=== PATIENT | female | born 1975 | race Caucasian/White ===

== ENCOUNTER 2019-01-21 09:18 | Emergency (ER) | payer MEDICAID, OTHER ==
[~2019-01-21] VITALS: Ht 170.2 cm; Wt 83.7 kg
[2019-01-21 09:20] VITALS: BP 162/77; PULSE 86; RESP 18; Ht 170.2 cm; Wt 83.7 kg
[2019-01-21] MEDS ORDERED: KETOROLAC 30 MG INJ IM STA (09:55)
[2019-01-21] MEDS ORDERED: HYDROCODONE/APAP (5/325) TAB PO ONE (10:00)
[2019-01-21] MEDS ORDERED: IBUP800T48 PO (10:27)
[2019-01-21] MEDS ORDERED: CYCL10TA7 PO (10:27)
--- NOTE | 2019-01-21 10:27 | ERD ---
ER Documentation Chief Complaint Chief Complaint back & neck pain & stiffness x2 days, denies injury HPI 43-year-old female is here complaining of 2 days of lower back and neck and bilateral shoulder pain and stiffness. No recent illness. She thinks is from lifting heavy objects at work. No fever. No flank pain. No dysuria hematuria or frequency. Has been taking anti-inflammatories at home with minimal relief. ROS All systems reviewed and are negative except as per history of present illness. Medications Home Meds No Active Prescriptions or Reported Meds Allergies Allergies: Coded Allergies: No Known Allergy (Unverified , 04/09/13) PMhx/Soc Medical and Surgical Hx: pt denies Medical Hx, pt denies Surgical Hx Hx Alcohol Use: No Hx Substance Use: No Hx Tobacco Use: No Smoking Status: Never smoker FmHx Family History: No diabetes Physical Exam Vitals Vital Signs Date Temp Pulse Resp B/P (MAP) Pulse Ox O2 O2 Flow FiO2 Time Delivery Rate 01/21/19 97.8 86 18 162/77 100 09:20 (105) Physical Exam INITIAL VITAL SIGNS: Reviewed by me GENERAL: Awake, alert and oriented x 4, well appearing, nontoxic, speaking in full sentences. No acute distress HEAD: Atraumatic NECK: Supple. No masses. Full range of motion. No meningismus. No midline tenderness. EYES: EOMI. PERRL. RESPIRATORY: Clear to auscultation bilaterally. Symmetric chest wall rise. No wheezing or rales. No accessory muscle use. CV: Regular rate and rhythm. No murmurs, rubs, or gallops. ABDOMEN: Soft, non-distended. Nontender. Negative [place]. Negative [place] point tenderness. No CVA tenderness bilaterally. No guarding. No rebound. : Deffered. EXTREMITIES: No clubbing or cyanosis. No edema. Moving all extremities normally. Back Exam: Compartments: Soft Motor: Normal flexion and extension of bilateral hip/knee/ankle/foot Sensation: Intact to light touch throughout Bones: No midline TTP Results 24 hrs Laboratory Tests Test 01/21/19 10:15 POC Beta HCG, Qualitative NEGATIVE Current Medications Medications Dose Sig/Erika Start Time Status Last (Trade) Ordered Route PRN Stop Time Admin Dose Reason Admin Ketorolac 30 mg ONCE STAT 01/21/19 DC 01/21/19 Tromethamine IM 09:55 01/21/19 10:12 (Toradol) 09:56 1 tab ONCE ONCE 01/21/19 DC 01/21/19 Acetaminophen PO 10:00 01/21/19 10:12 / 10:02 Hydrocodone Bitart ([place] ()) Procedures/MDM The differential diagnosis includes but is not limited to muscle strain, ligament strain, contusion, arthritis, discogenetic disease, non- musculoskeletal, cauda equina syndrome, cord compression, abscess and others. N o trauma. No urinary symptoms. No fever. Patient given Toradol and [place] here and discharged with ibuprofen and Flexeril. Patient counseled regarding my diagnostic impression and care plan. Prior to discharge all questions answered. Pt agrees with treatment plan and understands strict return precautions. Pt is instructed to follow up with primary care provider within 24-48 hours. Precautionary instructions provided including instructions to return to the ER if not improving or for any worsening or changing symptoms or concerns. Departure Diagnosis: Primary Impression: Back pain Condition: Stable LULI HOYT PA-C Jan 21, 2019 10:27
== END 2019-01-21 10:46 | disposition home or self-care (01) ==
LOC: FTE 09:18 → EDBD 09:18 → FTE 10:46
DX: M54.5 Low back pain (principal)
CPT/HCPCS: 81025; 96372; J1885; Z7502; Z7610

== ENCOUNTER 2019-04-09 18:40 | Emergency (ER) | payer SELFPAY ==
[~2019-04-09] VITALS: Ht 170.2 cm; Wt 80.0 kg
[~2019-04-09 18:40] MED LIST: CYCL10TA7 PO; IBUP800T48 PO
[2019-04-09 18:45] VITALS: Ht 170.2 cm; Wt 80.0 kg
[2019-04-09] MEDS ORDERED: ONDANSETRON (ODT) 4 MG TAB ODT STA (19:35)
[2019-04-09] MEDS ORDERED: KETOROLAC 30 MG INJ IM STA (19:35)
[2019-04-09] MEDS ORDERED: IBUP-1542 PO (21:08)
[2019-04-09] MEDS ORDERED: TRAM50TA2 PO (21:08)
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
[2019-04-09 21:26] VITALS: BP 138/78; PULSE 77; RESP 18
== END 2019-04-09 21:35 | disposition home or self-care (01) ==
LOC: FTE 18:40
DX: S13.9XXA Sprain of joints and ligaments of unspecified parts of neck, initial encounter (principal); V49.40XA Driver injured in collision with unspecified motor vehicles in traffic accident, initial encounter
CPT/HCPCS: 72040; 81025; 96372; 99284; J1885